=== PATIENT | male | born 1985 | race Caucasian/White ===

== ENCOUNTER → 2020-07-04 10:27 | Outpatient (CLI) | payer OTHER, SELFPAY ==
[2020-07-04 11:55] LABS: Cholesterol 165 mg/dL (140-199); HDL Cholesterol 53 mg/dL (40-60); LDL Cholesterol Calculated 104 mg/dL (<100); Triglycerides 42 mg/dL (35-150)
== END ==
PROVIDERS: PCP Student in an Organized Health Care Education/Training Program; Referring Provider Student in an Organized Health Care Education/Training Program; Visit Provider Student in an Organized Health Care Education/Training Program
DX: Z13.220 Encounter for screening for lipoid disorders (principal)
CPT/HCPCS: 36415; 80061

== ENCOUNTER → 2023-03-08 09:45 | Outpatient (CLI) | payer BC, SELFPAY ==
[2023-03-08 11:40] LABS: Alanine Aminotransferase 29 IU/L (<50); Albumin 4.6 g/dL (3.5-5.0); Albumin Globulin Ratio 1.4 (1.0-2.8); Alkaline Phosphatase 36 U/L (38-126); Aspartate Aminotransferase 31 IU/L (17-59); Bilirubin Total 0.6 mg/dL (0.2-1.3); Blood Urea Nitrogen 12 mg/dL (9-20); Calcium 9.7 mg/dL (8.4-10.2); Carbon Dioxide 31 mmol/L (22-32); Chloride 98 mmol/L (98-107); Cholesterol 160 mg/dL (140-199); Estimated Glomerular Filt Rate > 60 mL/min (>60); Globulin 3.3 g/dL (1.7-4.1); Glucose 76 mg/dL (70-100); HDL Cholesterol 61 mg/dL (40-60); HEMOLYSIS < 15 (0-50); LDL Cholesterol Calculated 90 mg/dL (<100); Potassium 4.1 mmol/L (3.4-5.1); Sodium 137 mmol/L (137-145); Total Protein 7.9 g/dL (6.3-8.2); Triglycerides 47 mg/dL (35-150)
[2023-03-08 12:18] LABS: Hepatitis B Surface Antigen NEGATIVE s/c (NEGATIVE)
[2023-03-08 12:29] LABS: HIV 1 & 2 Ab/Ag 4th Gen Combo NEGATIVE (NEGATIVE); Hep C Virus Ab w/Reflex Quant NEGATIVE s/c (NEGATIVE)
[2023-03-08 13:31] LABS: Urine N gonorrhoeae NOT DETECTED
[2023-03-08 13:40] LABS: Urine Chlamydia NOT DETECTED
[2023-03-10 05:22] LABS: RPR Screen Non Reactive (Non Reactive)
[2023-04-01 09:45] LABS: HSV 2 IGG AB < 0.91
[2023-04-01 09:46] LABS: HSV1IGG < 0.91
== END ==
PROVIDERS: PCP Family Medicine; Referring Provider Family Medicine; Visit Provider Family Medicine
DX: Z00.00 Encounter for general adult medical examination without abnormal findings (principal); Z72.51 High risk heterosexual behavior
CPT/HCPCS: 36415; 80053; 80061; 86592; 86695; 86696; 86803; 87340; 87389; 87491; 87591

== ENCOUNTER 2023-08-16 20:46 | Emergency (ER) | payer OTHER, BC, SELFPAY ==
[2023-08-16 20:50] VITALS: BP 146/85; PULSE 75; RESP 18; TEMP 36.7; O2SAT 97; BMI 24.4
--- NOTE | 2023-08-16 21:06 | DI.RAD.S_ITS ---
PROCEDURE: XR TOE LT MIN 2V INDICATIONS: L great toe injury TECHNIQUE: 3 views of the 1st toe(s) acquired. COMPARISON: None. FINDINGS: Bones: No fractures or dislocations. No suspicious bony lesions. Soft tissues: No suspicious soft tissue densities. IMPRESSION: No acute bony abnormality. Dictated by: Rainer Randolph M.D. on 08/16/2023 at 21:43 Approved by: Rainer Randolph M.D. on 08/16/2023 at 21:44
--- NOTE | 2023-08-16 21:06 | ED.LOWEXIN ---
HPI - Extremity Injury (Lower) General Chief Complaint: Extremity Injury, Lower Stated Complaint: lt 1st toe injury Time Seen by Provider: 08/16/23 20:57 Source: patient Mode of arrival: Ambulatory History of Present Illness HPI Narrative: Patient is a 37-year-old male here for evaluation of an injury that he sustained when he dropped a laptop on the top of his great toe in his left foot. It occurred earlier today while he was at work. He states he is developed a blackening under the toenail in the left. Has had difficulty walking. No other injuries from the event. Related Data Home Medications Medication Instructions Recorded Confirmed No Known Home Medications 07/04/20 03/18/23 Allergies Allergy/AdvReac Type Severity Reaction Status Date / Time No Known Drug Allergies Allergy Verified 08/16/23 20:50 Review of Systems Constitutional Constitutional: Reports system reviewed and no additional complaints, except as documented Musculoskeletal Musculoskeletal: Reports system reviewed and no additional complaints, except as documented Integumentary/Breasts Skin/Breast: Reports system reviewed and no additional complaints, except as documented Patient History Medical History Chicken pox (~1989) Surgical History (Updated 07/09/20 @ 21:48 by Maribel Mendoza) Anesthesia History of oral surgery (~2018) Family History (Updated 07/09/20 @ 21:49 by Maribel Mendoza) Father Smoker Lower back pain Social History Smoking Status: Former smoker Smoking Status: Former smoker alcohol intake frequency: 0-2 drinks per day Substance Use Type: marijuana Exam Initial Vital Signs Initial Vital Signs: Vital Signs Temperature 98.1 F 08/16/23 20:50 Pulse Rate 75 08/16/23 20:50 Respiratory Rate 18 08/16/23 20:50 Blood Pressure 146/85 H 08/16/23 20:50 Pulse Oximetry 97 08/16/23 20:50 Oxygen Delivery Method Room Air 08/16/23 20:50 Skin General: no rashes or lesions noted Extrem Other: Subungual hematoma in the left. Swelling to the left great toe. No midfoot tenderness. No tenderness to the 2nd 3rd or 4th or 5th toes. No tenderness over the MTP joint of the great toe. Procedures Nail Trephination Time out: Yes Location (toes): first digit Method of drainage: needle Procedure successful: Yes Patient tolerated procedure: well and no complications Course Orders Ordered: ED Orders 08/16/23 21:06 XR toe LT min 2V Stat Vital Signs Vital signs: Vital Signs - 8 hr 08/16/23 20:50 Temperature 98.1 F Pulse Rate 75 Respiratory Rate 18 Blood Pressure 146/85 H Pulse Oximetry 97 Oxygen Delivery Method Room Air MDM - Extremity Injury (Lower) Imaging Data Extremity x-ray #1: Radiologist's Impression: PROCEDURE: XR TOE LT MIN 2V INDICATIONS: L great toe injury TECHNIQUE: 3 views of the 1st toe(s) acquired. COMPARISON: None. FINDINGS: Bones: No fractures or dislocations. No suspicious bony lesions. Soft tissues: No suspicious soft tissue densities. IMPRESSION: No acute bony abnormality. [facility] Narrative Medical decision making narrative: No fractures or dislocations. Does have a subungual hematoma on the left. A nail trephination was performed with return of a small amount of blood. No other injuries from the event. Discuss this with the patient. He can ambulate as tolerated. Recommended Tylenol and ibuprofen and ice. He was given return precautions and instructions. He expressed understanding and agreement. Discharge Plan Departure Patient Disposition: Home Clinical Impression: Subungual hematoma of great toe of left foot Instructions: DI for Subungual Hematoma Activity Restrictions/Additional Instructions: There were no fractures noted on the x-ray. You can walk as tolerated. I do recommend you try to keep your foot elevated and use ice. Return to the emergency department for new or worsening symptoms. Prescriptions: No Action No Known Home Medications Referrals: Thanh Marquez DO [Primary Care Provider] - Stand Alone Forms: Patient Portal/API
== END 2023-08-16 21:53 | disposition home or self-care (01) ==
PROVIDERS: Emergency Provider Emergency Medicine; PCP Family Medicine
DX: S90.212A Contusion of left great toe with damage to nail, initial encounter (principal); W20.8XXA Other cause of strike by thrown, projected or falling object, initial encounter; Y99.0 Civilian activity done for income or pay
CPT/HCPCS: 11740; 73660; 99281; 99283

== ENCOUNTER → 2024-03-13 13:15 | Outpatient (CLI) | payer BC, SELFPAY ==
[2024-03-13 14:02] LABS: Alanine Aminotransferase 33 IU/L (<50); Albumin 4.7 g/dL (3.5-5.0); Albumin Globulin Ratio 1.7 (1.0-2.8); Alkaline Phosphatase 38 U/L (38-126); Aspartate Aminotransferase 31 IU/L (17-59); BUN Creatinine Ratio 14.1 (6-22); Bilirubin Total 0.5 mg/dL (0.2-1.3); Blood Urea Nitrogen 12 mg/dL (9-20); Carbon Dioxide 29 mmol/L (22-32); Chloride 105 mmol/L (98-107); Cholesterol 163 mg/dL (140-199); Estimated Glomerular Filt Rate > 60 mL/min (>60); Globulin 2.7 g/dL (1.7-4.1); Glucose 78 mg/dL (70-100); HDL Cholesterol 61 mg/dL (40-60); HEMOLYSIS < 15 (0-50); LDL Cholesterol Calculated 85 mg/dL (<100); Sodium 140 mmol/L (137-145); Total Protein 7.4 g/dL (6.3-8.2); Triglycerides 87 mg/dL (35-150)
== END ==
PROVIDERS: PCP Family Medicine; Referring Provider Family Medicine; Visit Provider Family Medicine
DX: Z00.00 Encounter for general adult medical examination without abnormal findings (principal)
CPT/HCPCS: 36415; 80053; 80061

== ENCOUNTER → 2025-03-15 11:06 | Outpatient (CLI) | payer BC, SELFPAY ==
[2025-03-15 12:13] LABS: Hematocrit 44.7 % (41-53); Hemoglobin 15.1 g/dL (13.5-17.5); Mean Corpuscular HGB Conc 33.7 % (30-36); Mean Corpuscular Hemoglobin 28.8 PG (26-34); Mean Corpuscular Volume 85.5 fL (80-100); Platelet Count 275 X10^3/uL (150-400)
[2025-03-15 12:34] LABS: Alanine Aminotransferase 50 IU/L (<50); Albumin 4.9 g/dL (3.5-5.0); Albumin Globulin Ratio 1.7 (1.0-2.8); Alkaline Phosphatase 39 U/L (38-126); Blood Urea Nitrogen 13 mg/dL (9-20); Calcium 9.8 mg/dL (8.4-10.2); Carbon Dioxide 29 mmol/L (22-32); Chloride 101 mmol/L (98-107); Cholesterol 177 mg/dL (140-199); Estimated Glomerular Filt Rate > 60 mL/min (>60); Globulin 2.9 g/dL (1.7-4.1); Glucose 86 mg/dL (70-99); HDL Cholesterol 70 mg/dL (40-60); HEMOLYSIS < 15 (0-50); Potassium 4.8 mmol/L (3.4-5.1); Sodium 139 mmol/L (137-145); Total Protein 7.8 g/dL (6.3-8.2); Triglycerides 60 mg/dL (35-150)
== END ==
LOC: LAB 11:06
PROVIDERS: PCP Family Medicine; Referring Provider Family Medicine; Visit Provider Family Medicine
DX: Z00.00 Encounter for general adult medical examination without abnormal findings (principal)
CPT/HCPCS: 36415; 80053; 80061; 85027